=== PATIENT | male | born 1975 | race Caucasian/White ===

== ENCOUNTER 2020-10-19 08:04 | Outpatient (CLI) | payer BC, SELFPAY | END 2020-10-19 08:05 | disposition home or self-care (01) | LOC: ANHCOVIDVC 08:04 | PROVIDERS: PCP Internal Medicine | DX: Z23 Encounter for immunization (principal) | CPT/HCPCS: 0001A; 91300 ==

== ENCOUNTER 2020-11-09 07:59 | Outpatient (CLI) | payer BC, SELFPAY | END 2020-11-09 08:00 | disposition home or self-care (01) | LOC: ANHCOVIDVC 08:00 | PROVIDERS: PCP Internal Medicine | DX: Z23 Encounter for immunization (principal) | CPT/HCPCS: 0002A; 91300 ==

== ENCOUNTER 2025-02-26 14:13 | Emergency (ER) | payer OTHER, SELFPAY ==
--- NOTE | ~2025-02-26 | XR_ITS ---
EXAMINATION: XR foot LT min 3V DATE: 02/26/2025 14:39 INDICATION: Left foot pain at the ball of the foot TECHNIQUE: Dorsoplantar, two oblique and lateral views of the left foot were obtained. COMPARISON: None. FINDINGS: Alignment is normal. No fracture. Mild polyarticular osteoarthritis most prominent at the first metatarsophalangeal joint with additional minimal to mild osteoarthritis at a few of the tarsal metatarsal and interphalangeal joints. Small Achilles and plantar calcaneal spurs. Soft tissues are unremarkable. IMPRESSION: 1. No acute/subacute osseous abnormality. 2. 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 3. Achilles and plantar calcaneal spurs. Reviewed, dictated and finalized at location A.
[2025-02-26 14:22] VITALS: BP 138/94; PULSE 103; RESP 18; TEMP 36.8; O2SAT 98
--- NOTE | 2025-02-26 15:12 | ED_ITS ---
HPI - Extremity Injury (Lower) General Chief Complaint: Extremity Injury, Lower Stated Complaint: L foot pain History of Present Illness HPI Narrative: 49 yo M presents with pain to L great toe and ball of foot. Jumped from a few steps several weeks ago. Pain worse this week. Worse when bearing weight. No issues with feet such as pain prior to injury. Ambulatory with steady gait. All systems reviewed and negative except as noted above. Related Data Home Medications ?Medication ?Instructions ?Recorded ?Confirmed ?Last Taken ?Type ezetimibe 10 mg tablet mg 02/26/25 Unknown History Allergies Allergy/AdvReac Type Severity Reaction Status Date / Time [id number] Reductase AdvReac Muscle Pain Verified 02/26/25 14:18 Inhibitor livalo AdvReac Muscle Pain Uncoded 02/26/25 14:18 welchol AdvReac Muscle Pain Uncoded 02/26/25 14:18 PMFSH Past Medical History Medical History Obesity, Class II, BMI 35-39.9 Mixed hyperlipidemia Essential hypertension Surgical History Surgical History History of liver biopsy 07/2010 History of appendectomy 08/2008 Family History Family History Mother No problems noted. Father No problems noted. Social History Social History Smoking status: Never smoker Alcohol intake: current Drinks per week: 3 Substance use: never Lack of Transportation: No Lack of Food: Never True Current Housing: I Have Housing Concerned About Future Housing: No Difficulty Paying Gas/Electric Bills: No Difficulty Paying for Meds: No Currently Unemployed: YES Education: Associate Degree Difficulty w/ Childcare or Family Care: No Living arrangements: with family Occupation/Education: occupation Gender identity (if verbalized by the patient): Male Sexual Orientation (if Verbalized by the Patient): Straight or Heterosexual Spiritual care concerns: No Comments At time of signature, agree with nursing past medical, surgical, social and family history. There is no relevant family history pertinent to the presenting complaint. Exam Narrative: GENERAL: This is a well-nourished, well-developed patient, in no apparent di stress. HEAD: normocephalic, atraumatic. EYES: PERRL. Sclera clear/white. Vision is grossly intact. EARS: External ears normal NOSE: External nose normal NECK: Neck supple, non-tender without lymphadenopathy, masses or thyromegaly. CARDIOVASCULAR: Regular rate and rhythm without murmurs, gallops, or rubs. RESPIRATORY: Clear to auscultation. Breath sounds equal bilaterally. No wheezes, rales, or rhonchi. SKIN: warm, Dry, intact with no suspicious lesions or rash, good texture and turgor. NEURO: awake, alert, and oriented to person, place and time. There were no obvious focal neurologic abnormalities. EXTREMITIES: mild swelling to L 1st MTP joint, bruising to plantar aspect. No warmth or redness. no deformity. Course Course Level of Care: Express Care Visit Vital Signs Vital signs: Vital Signs Temperature 36.8 C 02/26/25 14:22 Pulse Rate 103 H 02/26/25 14:22 Respiratory Rate 18 02/26/25 14:22 Blood Pressure 138/94 H 02/26/25 14:22 Pulse Oximetry 98 02/26/25 14:22 Oxygen Delivery Room Air 02/26/25 14:22 Temperature 36.8 C 02/26/25 14:22 Pulse Rate 103 H 02/26/25 14:22 Respiratory Rate 18 02/26/25 14:22 Blood Pressure 138/94 H 02/26/25 14:22 Pulse Oximetry 98 02/26/25 14:22 Oxygen Delivery Room Air 02/26/25 14:22 reviewed MDM - Extremity Injury (Lower) MDM Narrative Medical decision making narrative: discussed x-ray results with patient. Will treat with prednisone for arthritis inflammation. Recommend [id number] ibuprofen or Tylenol for pain. Recommend follow-up with Podiatry if pain is not improving. Differential Diagnosis Differential diagnosis: Likely fracture of toe and other ( Foot fracture, gout, arthritis) Imaging Data My impression: agree with radiologist Radiologist's impression: EXAMINATION: XR foot LT min 3V DATE: 02/26/2025 14:39 INDICATION: Left foot pain at the ball of the foot TECHNIQUE: Dorsoplantar, two oblique and lateral views of the left foot were obtained. COMPARISON: None. FINDINGS: Alignment is normal. No fracture. Mild polyarticular osteoarthritis most prominent at the first metatarsophalangeal joint with additional minimal to mild osteoarthritis at a few of the tarsal metatarsal and interphalangeal joints. Small Achilles and plantar calcaneal spurs. Soft tissues are unremarkable. IMPRESSION: 1. No acute/subacute osseous abnormality. 2. 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 3. Achilles and plantar calcaneal spurs. Discharge Plan Discharge Clinical Impression: Arthritis of foot, left, Contusion of foot, left Patient Disposition: Home Condition: Stable Instructions: Arthritis (ED) Additional Instructions: Take medication as prescribed. Taking [id number]-rbylphy medication to treat pain such as ibuprofen or Tylenol. Take as directed on packaging. Elevate when at rest. Apply ice as needed for pain. Follow-up with your primary care physician Or Podiatry if pain is not i mproving. Patient Language: Amharic Prescriptions: New prednisone 20 mg tablet See Rx Instructions .Route .COMPLEX Qty: 12 0RF Rx Instructions: Take 3 tablets today, then 2 tablets daily for 3 days then 1 tablet daily for 3 days. No Action ezetimibe 10 mg tablet lisinopril-hydrochlorothiazide 20-25 mg tablet See Rx Instructions .ROUTE .COMPLEX Qty: 90 1RF Dose Instruction: TAKE 1 TABLET BY MOUTH DAILY Rx Instructions: TAKE 1 TABLET BY MOUTH DAILY amlodipine 5 mg tablet 5 mg PO DAILY Qty: 30 0RF Follow-up/Referrals: Dawood Badillo Jr., DPM [Physician, Podiatry] Referral Note: Follow-up with Podiatry if pain is not improving. Huy Anand MD [Primary Care Provider, [facility]] Time of Disposition: 15:20
== END 2025-02-26 15:25 | disposition home or self-care (01) ==
PROVIDERS: Emergency Provider Nurse Practitioner Family; PCP Family Medicine
DX: M19.072 Primary osteoarthritis, left ankle and foot (principal); S90.32XA Contusion of left foot, initial encounter; W17.89XA Other fall from one level to another, initial encounter; I10 Essential (primary) hypertension; E78.2 Mixed hyperlipidemia; E66.9 Obesity, unspecified; Z68.36 Body mass index [BMI] 36.0-36.9, adult
CPT/HCPCS: 73630; 99213; G0463